=== PATIENT | male | born 2000 | race African-American/Black ===

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

== ENCOUNTER 2019-01-24 22:08 | Emergency (ER) | payer SELFPAY ==
[2019-01-24] MEDS ORDERED: Lidocaine 1% PF 5 ML VIAL ONE (22:38)
[2019-01-24] MEDS ORDERED: cefTRIAXone\\ROCEPHIN 1 GM VIAL ONE (22:38)
[2019-01-24] MEDS ORDERED: Dexamethasone 10 MG/ML VIAL ONE (22:41)
== END 2019-01-24 23:07 | disposition home or self-care (01) ==
LOC: ERS 22:08
DX: J36 Peritonsillar abscess (principal)
CPT/HCPCS: 87081; 87430; 96372; 99283; J0696; J1100; J2001

== ENCOUNTER 2023-02-25 03:58 | Emergency (ER) | payer SELFPAY ==
[2023-02-25 04:43] LABS: #Basophils 0.1 thou/uL (0.0-0.2); #Monocytes 0.9 thou/uL (0.11-0.59); #Neutrophils 8.4 thou/uL (1.40-6.50); %Basophils 0.5 % (0.0-1.0); %Eosinophils 0.2 % (0.0-10.0); %Lymphocytes 10.9 % (21.0-51.0); %Monocytes 8.5 % (0.0-10.0); %Neutrophils 79.6 % (42.0-75.0); Hematocrit 44.6 % (42.0-52.0); Hemoglobin 14.7 g/dL (14.0-18.0); Mean Corpuscular Hemoglobin 27.8 pg (27.0-31.0); Mean Corpuscular Volume 84.3 fl (78.0-98.0); Mean Platelet Volume 10.7 fL (7.4-10.4); Platelet Count 283 10x3/uL (130-400); RBC Distribution Width 13.8 % (11.5-14.5); Red Blood Cell (RBC) Count 5.29 mill/uL (4.70-6.10); White Blood Cell (WBC) Count 10.5 10x3/uL (4.8-10.8)
[2023-02-25] MEDS ORDERED: Dexamethasone 10 MG/ML VIAL ONE (04:56)
[2023-02-25] MEDS ORDERED: Acetaminophen 500 MG TAB ONE (04:56)
[2023-02-25] MEDS ORDERED: Ketorolac Tromethamine 30 MG/ML VIAL ONE (04:57)
[2023-02-25 05:08] LABS: ALT (SGPT) 42 U/L (8-55); AST (SGOT) 43 U/L (5-34); Albumin 4.6 g/dL (3.5-5.0); Alkaline Phosphatase 57 U/L (40-110); Anion Gap 13 mmol/L (10-20); BUN (Urea Nitrogen) 15 mg/dL (8.9-20.6); Bilirubin, Total 0.3 mg/dL (0.2-1.2); Calc. Creatinine Clearance 0 mL/min (70-130); Calcium 9.2 mg/dL (7.8-10.44); Carbon Dioxide 25 mmol/L (22-29); Chloride 101 mmol/L (98-107); Estimated GFR 87; Globulin 3.5 g/dL (2.4-3.5); Glucose 109 mg/dL (70-105); Potassium 4.4 mmol/L (3.5-5.1); Protein, Total 8.1 g/dL (6.0-8.3); Sodium 135 mmol/L (136-145)
[2023-02-25 06:08] LABS: SARS-CoV-2 NAA Rapid Test Not Detected (NotDetected)
[2023-02-25] MEDS ORDERED: Metoclopramide HCl 10 MG/2 ML VIAL ONE (06:35)
[2023-02-25] MEDS ORDERED: Ibuprofen 200 MG TAB ONE (06:35)
[2023-02-25] MEDS ORDERED: Amoxicillin/Potassium Clav 875 MG TAB ONE (06:45)
== END 2023-02-25 07:00 | disposition home or self-care (01) ==
LOC: ERS 03:58
DX: J11.00 Influenza due to unidentified influenza virus with unspecified type of pneumonia (principal); Z20.822 Contact with and (suspected) exposure to COVID-19
CPT/HCPCS: 71045; 80053; 83605; 85025; 87040; 93005; 96361; 96374; 96375; J1100; J1885; J2765